=== PATIENT | female | born 1950 | race Caucasian/White ===

== ENCOUNTER 2023-01-05 08:08 | Outpatient (CLI) | payer OTHER | END 2023-01-05 08:17 | disposition home or self-care (01) | LOC: TOM 08:08 | DX: C11.3 Malignant neoplasm of anterior wall of nasopharynx (principal); R91.1 Solitary pulmonary nodule ==

== ENCOUNTER 2023-01-15 07:50 | Outpatient (CLI) | payer OTHER | END 2023-01-15 07:55 | disposition home or self-care (01) | LOC: RAD 07:50 | DX: M81.0 Age-related osteoporosis without current pathological fracture (principal) ==